=== PATIENT | male | born 1965 | race Two or more races ===

== ENCOUNTER 2019-04-24 13:55 | Outpatient (CLI) | payer OTHER ==
[~2019-04-24] VITALS: Ht 175.3 cm; Wt 83.9 kg
== END 2019-04-24 15:44 | disposition home or self-care (01) ==
LOC: OFIC 805 13:55
DX: J33.8 Other polyp of sinus (principal); R09.81 Nasal congestion; J31.0 Chronic rhinitis; J37.0 Chronic laryngitis

== ENCOUNTER 2019-10-06 11:04 | Emergency (ER) | payer OTHER ==
[~2019-10-06] VITALS: Ht 175.3 cm; Wt 81.6 kg
[2019-10-06] MEDS ORDERED: KETO10TA2 PO (12:10)
[2019-10-06] MEDS ORDERED: NORFLEX100MG PO (12:10)
== END 2019-10-06 12:29 | disposition home or self-care (01) ==
LOC: ER 11:04
DX: G89.11 Acute pain due to trauma (principal); M25.512 Pain in left shoulder; M54.2 Cervicalgia

== ENCOUNTER 2020-03-29 06:59 | Emergency (ER) | payer OTHER ==
[~2020-03-29] VITALS: Ht 175.3 cm; Wt 86.2 kg
[~2020-03-29 06:59] MED LIST: KETO10TA2 PO; NORFLEX100MG PO
[2020-03-29] MEDS ORDERED: LOSARTAN POTASS50 MG PO (07:04)
[2020-03-29] MEDS ORDERED: VYTORIN 10-401 EACH PO (07:05)
== END 2020-03-29 09:42 | disposition home or self-care (01) ==
LOC: ER 06:59
DX: I16.0 Hypertensive urgency (principal); Z20.828 Contact with and (suspected) exposure to other viral communicable diseases